=== PATIENT | male | born 1935 ===

== ENCOUNTER 2017-04-14 07:45 | Day surgery (SDC) | payer MEDICARE, MEDICAID ==
[2017-04-14] MEDS ORDERED: Bacitracin 50,000 UNIT in Sodium Chloride 0.9% Irrig 1,000 ML IR SCH (12:15)
[2017-04-14] MEDS ORDERED: Phenylephrine 10 mg/ml Inj ONE (12:38)
[2017-04-14] MEDS ORDERED: ePHEDrine 50 mg/ml Inj ONE (12:38)
[2017-04-14] MEDS ORDERED: Propofol 10 mg/ml Inj (20 ML) ONE (12:43)
[2017-04-14] MEDS ORDERED: Bupivacaine HCl 0.5% PF (10 ml) Inj ONE ×2 (12:48)
[2017-04-14] MEDS ORDERED: Lidocaine 2% Inj (20ml) ONE (12:48)
[2017-04-14] MEDS ORDERED: Bacitracin Ointment 30 GM TUBE ONE (12:48)
[2017-04-14] MEDS: ceFAZolin IV 2 gm in Dextrose 2 GM/50 ML BAG IVPB ONE ×2 (12:55→13:08)
[2017-04-14] MEDS: Gentamicin 160 MG in Sodium Chloride 0.9% 100 ML IVPB ONE ×2 (13:05→13:08)
--- NOTE | 2017-04-14 14:22 | PCM.SURG1 ---
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
[2017-04-14] MEDS ORDERED: HYDROmorphone 0.5 mg/0.5 ml ISec IVP PRN (14:23)
[2017-04-14 17:12] VITALS: RESP 16
[2017-04-14 18:28] VITALS: BP 147/86; PULSE 79; TEMP 97.7; O2SAT 98
--- NOTE | 2017-04-15 00:23 | OP ---
PROCEDURE DATE: 04/14/2017 PREOPERATIVE DIAGNOSIS: Vasculogenic impotence. POSTOPERATIVE DIAGNOSIS: Vasculogenic impotence. PROCEDURE: Insertion of semi-rigid penile implant. SURGEON: Robel Tyson MD DESCRIPTION OF PROCEDURE: The procedure is as follows. Prior to procedure, a detailed informed consent was obtained from the patient. He was apprised of all risks, complications, and limitations of semi-rigid penile implant insertion. He is willing to accept those risks, complications, limitations, and proceed with the surgery. He was brought into the room. He was given prophylactic antibiotics and draped and prepped in usual manner. A #18 Sal catheter was inserted in the urethra and bladder was drained. The Sal was clamped. After the patient was completely draped and prepped, the penile implant retractor was positioned properly over the penis. The penis was placed on stretch. An incision was made in the median raphe at the penile scrotal junction. This was carried down to the subcutaneous tissues until the urethra could be visualized. Care was taken not to injure the urethra. Lateral dissection was carried out on either side to expose the corpora which was done with low difficulty. Two 3-0 chromic stay sutures were placed in the corpora on either side in a homologous position and then each corpora was opened using a scalpel. Once the corpora have been opened, the corpora were dilated which sounds to the full diameter of 13 Faroese. Once both corpora were dilated, the sizing instrument was used and the proper penile implant was selected. This having been done, the penile implants were placed within the corpora, and they were noted to be in good fit with no SST deformity and not being too tight. Each corpora was then closed in a discontinuous fashion with 3-0 Dexon suture in a [id number] manner, and the skin and subcutaneous tissue were closed with 3-0 chromic suture in a discontinuous fashion with two separate layers. The skin was then infiltrated with 0.5% Marcaine and Xylocaine solution. A dry sterile slight compression dressing was placed on the scrotum, and the Sal catheter was placed to gravity. The patient tolerated this procedure well and was sent to the recovery room in good condition. He will be given antibiotics and pain medications. He will return to our office tomorrow for a Sal catheter removal. Robel Tyson MD
== END 2017-04-14 18:20 | disposition home or self-care (01) ==
LOC: C.SDS 07:45
PROVIDERS: ATTEND Urology
DX: N52.9 Male erectile dysfunction, unspecified (principal)
CPT/HCPCS: 54400; A4358; C1813; C2622; J0690; J1170; J1580; J2001; J2370; J2704; J3010

== ENCOUNTER 2017-04-16 10:28 | Emergency (ER) | payer MEDICARE, MEDICAID ==
[2017-04-16 10:44] VITALS: TEMP 98
--- NOTE | 2017-04-16 11:06 | C.PDOC ---
History Of Present Illness Jordan Deleon is an 82 year old male, with a past medical history of benign prostatic hyperplasia, who presents to the emergency department complaining of penile swelling and itching s/p penile implant x2 days ago by Dr. Underwood. Patient denies any bleeding or discharge from incision site. Patient has been compliant with pain medication and antibiotics. He denies any fever, chills, abdominal pain, nausea, or vomit. PMD: Wayne Bellamy Time Seen by Provider: 04/16/17 10:49 Chief Complaint (Nursing): Male Genitourinary History Per: Patient History/Exam Limitations: no limitations Onset/Duration Of Symptoms: Days (x2) Current Symptoms Are (Timing): Still Present Associated Symptoms: denies: Fever, Chills, Nausea, Vomiting, Other (abdominal pain) Past Medical History Reviewed: Historical Data, Nursing Documentation, Vital Signs Vital Signs: Last Vital Signs Temp 98.0 F 04/16/17 10:41 Pulse 67 04/16/17 12:15 Resp 17 04/16/17 12:15 BP 138/73 04/16/17 12:15 Pulse Ox 97 04/16/17 12:15 - Medical History PMH: Benign Prostatic Hyperplasia, Fractures (HX: FX. RIGHT ARM AND WRIST) - [facility] Procedures APPLICATION OF SPLINT (03/18/13) CLOSURE SKIN & SUBCUTANEOUS NEC (11/02/14) DPT ADMINISTRATION (11/02/14) LINEAR REP LID LACER (11/02/14) Family History: States: Unknown Family Hx - Social History Hx Tobacco Use: No Hx Alcohol Use: No Hx Substance Use: No - Immunization History Hx Tetanus Toxoid Vaccination: No Hx Influenza Vaccination: No Hx Pneumococcal Vaccination: No Review Of Systems Genitourinary: Positive for: Other (penile swelling and itching) Physical Exam - Physical Exam Appears: Other (comfortable ) Skin: Normal Color, Warm, Dry Head: Atraumatic, Normacephalic Eye(s): bilateral: Normal Inspection, PERRL, EOMI Neck: Normal ROM Cardiovascular: Rhythm Regular Respiratory: Normal Breath Sounds, No Wheezing Gastrointestinal/Abdominal: Normal Exam, Soft, No Tenderness, No Guarding, No Rebound Male Genital: Other (ecchymotic and moderate swelling. On dorsal aspect of the base, he has a 4cm midline incision. Well healing, no bleeding or discharge, no erythema. ) Extremity: Normal ROM, No Deformity, No Swelling Neurological/Psych: Oriented x3 ED Course And Treatment - Laboratory Results Result Diagrams: 04/16/17 11:07 04/16/17 11:07 O2 Sat by Pulse Oximetry: 98 (RA) Pulse Ox Interpretation: Normal Progress Note: Initial Impression: Penile swelling. Initial Plan: CMP, CBC w/ differential, PTT, PT,Bacitracin 1 ea TOP, Urine culture, Urinalysis. - Bloodwork and urine came back normal. -Spoke with Dr. Underwood. -Patient states he feels better. Pt will be discharged home. - Physician Consult Information Physician Contacted: Robel Tyson Jr. Outcome Of Conversation: Discussed patient with urologist, scrotal support can be removed, new gauze dressing + bacitracin applied. He can be discharged home with follow up in the office. Disposition Counseled Patient/Family Regarding: Diagnosis, Need For Followup - Disposition Disposition: HOME/ ROUTINE Disposition Time: 12:10 Condition: STABLE Additional Instructions: SEGUIMIENTO CON FERNANDEZ UROLOGIST DENTRO DE 1 SEMANA CONTINE MICHELE ANTIBITICOS Y MEDICAMENTOS PARA EL DOLOR REGRESE AL ROSA DE EMERGENCIA SI LOS SNTOMAS EMPEORAN FOLLOW UP WITH YOUR UROLOGIST WITHIN 1 WEEK CONTINUE YOUR ANTIBIOTICS AND PAIN MEDICATION RETURN TO EMERGENCY ROOM IF SYMPTOMS WORSEN Forms: [facility] (M[place]ese), General Discharge Instructions Print Language: MAORI - Clinical Impression Clinical Impression: Penile swelling, Ecchymosis, Postop check - Scribe Statement The provider has reviewed the documentation as recorded by the Scribe Thomas Berkowitz
[2017-04-16 11:13] LABS: BASO % 0.3 % (0.0-2.0); EOS % 0.5 % (0.0-4.0); HEMOGLOBIN 11.7 g/dL (12.0-18.0); LYMPH # 1.1 K/uL (1.0-4.3); LYMPH % 21.3 % (20.0-40.0); MEAN CELL VOLUME 86.9 fL (80.0-94.0); MEAN CORPUSCULAR HEMOGLOBIN 29.2 pg (27.0-31.0); MEAN CORPUSCULAR HGB CONC 33.6 g/dL (33.0-37.0); MEAN PLATELET VOLUME 8.1 fL (7.2-11.7); MONO # 0.9 K/uL (0.0-0.8); MONO % 17.2 % (0.0-10.0); NEUT # 3.1 K/uL (1.8-7.0); NEUT % 60.7 % (50.0-75.0); RBC 4.02 Mil/uL (4.40-5.90); RED CELL DISTRIBUTION WIDTH 15.8 % (11.5-14.5); WHITE BLOOD COUNT 5.2 K/uL (4.8-10.8)
[2017-04-16 11:26] LABS: ALB/GLOB RATIO 1.2 (1.0-2.1); ALT/SGPT 25 U/L (21-72); AST/SGOT 42 U/L (17-59); BLOOD UREA NITROGEN 16 mg/dL (9-20); CALCIUM 9.9 mg/dl (8.6-10.4); GFR AFRICAN-AMERICAN > 60; GFR NON-AFRICAN AMERICAN 58
[2017-04-16 11:27] LABS: URINE BILIRUBIN NEGATIVE (NEGATIVE); URINE BLOOD 2+ (NEGATIVE); URINE CLARITY Clear (Clear); URINE COLOR Yellow (YELLOW); URINE GLUCOSE (UA) NORMAL (Normal); URINE LEUKOCYTE ESTERASE NEG Leu/uL (Negative); URINE PROTEIN NEGATIVE (NEGATIVE); URINE UROBILINOGEN NORMAL mg/dL (0.2-1.0)
[2017-04-16 11:27] LABS: PROTHROMBIN TIME 11.6 SECONDS (9.7-12.2)
[2017-04-16] MEDS ORDERED: Bacitracin 500 Units/gm Oint Foilpak UD ONE (12:10)
[2017-04-16 12:15] VITALS: BP 138/73; PULSE 67; RESP 17
[2017-04-16] MEDS: Bacitracin 500 Units/gm Oint Foilpak UD TOP ONE (12:15)
[2017-04-16 16:12] VITALS: O2SAT 98
== END 2017-04-16 12:46 | disposition home or self-care (01) ==
LOC: C.ER 10:28
DX: Z51.89 Encounter for other specified aftercare (principal); S30.21XA Contusion of penis, initial encounter; X58.XXXA Exposure to other specified factors, initial encounter; Y92.9 Unspecified place or not applicable; N48.9 Disorder of penis, unspecified; N40.0 Benign prostatic hyperplasia without lower urinary tract symptoms